=== PATIENT | male | born 2000 | race Caucasian/White ===

== ENCOUNTER 2023-03-05 19:39 | Inpatient (IN) ==
[2023-03-05] MEDS ORDERED: SODIUM CHLORIDE 0.9% IV STA (19:55)
[2023-03-05] MEDS ORDERED: PHENOBARBITAL SODIUM IV STA (19:55)
[2023-03-05] MEDS ORDERED: SODIUM CHLORIDE 0.9% 1000ML 1,000 ML IV ONE ×2 (19:55→21:18)
[2023-03-05 20:21] LABS: Albumin Globulin Ratio 1.5 (0.9-2); Albumin Level 4.5 gm/dl (3.4-5.0); BUN Creatinine Ratio 15.1 (10-20); Bilirubin,Total 0.2 mg/dl (0.2-1.0); Calcium 9.2 mg/dl (8.6-10.3); Creatinine Clr Calc Pharmacy 141.5 ml/min; Est GFR (African American) 141.7 ml/min; Est GFR (Non-African American) 122.2 ml/min; Potassium 3.7 mmol/L (3.5-5.1); Total Protein 7.5 gm/dl (6.0-8.3)
[2023-03-05 20:24] LABS: Basophils # (auto) 0.11 K/uL (0-0.2); Basophils % (auto) 1.4 %; Eosinophils # (auto) 0.66 K/uL (0-0.50); Eosinophils % (auto) 8.1 %; Hematocrit (blood only) 43.1 % (42.0-52.0); Hemoglobin 14.9 g/dl (14.0-18.0); Immature Granulocytes # (auto) 0.02 K/uL (0.01-0.20); Immature Granulocytes % (auto) 0.2 %; Lymphocytes # (auto) 2.33 K/uL (1.2-3.4); Lymphocytes % (auto) 28.8 %; Mean Corpuscular Hemoglobin 28.2 pg (25.0-34.0); Mean Corpuscular Hgb Conc 34.6 g/dL (32.0-36.0); Mean Corpuscular Volume 81.6 fL (80.0-100.0); Mean Platelet Volume 10.1 fL (9.4-12.4); Monocytes # (auto) 0.45 K/uL (0.11-0.59); Monocytes % (auto) 5.6 %; Neutrophils # (auto) 4.53 K/uL (1.40-6.50); Neutrophils % (auto) 55.9 %; Platelet Count 257 K/uL (130-400); RDW Coefficient of Variation 13.9 % (11.5-14.5); Red Blood Count 5.28 M/uL (4.70-6.10)
--- NOTE | 2023-03-05 20:25 | Emergency Department Note ---
Impression & Plan Post-ictal state, Seizure ED Provider Note CHIEF COMPLAINT: Seizure HISTORY OF PRESENT ILLNESS: This 22-year-old male patient with past medical history of seizure disorder presents to the emergency department after a seizure today. Patient's brother is at the bedside and states that they were at work tonight when the patient began to seize. A another coworker was able to break his fall, they do not believe he was injured. Patient did have some alcohol yesterday he believes but had previously been told he could not drink to excess. Patient's brother states he was previously noncompliant with his medicines but he believes he has been taking them lately. He is followed by neurology but states they are "looking for a new doctor." He is unsure of the doctor's name and location. Per EMS the patient had a seizure in route. He was given 2 mg of IV Ativan and 4 mg of IV Versed by medical command. REVIEW OF SYSTEMS: A review of systems was performed with positives and pertinent negatives listed in the history of present illness. 10 systems were reviewed and are otherwise negative. ALLERGIES: see below MEDICATIONS: see below PMH: see below SOCIAL HISTORY: see below DDx: Epilepsy, CSF infection, hypoglycemia, electrolyte abnormalities, cardiac arrhythmia, intracerebral event, trauma, toxicologic, as well as other pathologies. PHYSICAL EXAM: Vital signs reviewed. General: Generally well-appearing 22-year-old male, somnolent and appears to be sleeping. HEENT: No scleral icterus, PERRLA, neck supple. Atraumatic. Cardiovascular: Regular rate and rhythm, no extra sounds. Pulmonary: Clear to auscultation bilaterally, normal work of breathing. Abdomen: Soft, nontender, nondistended, positive bowel sounds. Musculoskeletal: Atraumatic, no peripheral edema. Neurologic: Patient appears to be postictal, sleeping Skin: Warm, dry, no rash EMERGENCY DEPARTMENT COURSE/MDM: This patient was evaluated and appeared to be in no distress. The patient was quite sedate/postictal. No further seizure activity was witnessed in the emergency department. The patient was loaded with IV Keppra 2 g and IV phenobarbital 1 g. Patient did receive 1 L of normal saline solution by EMS and a second for some mild hypotension. This is likely a combination of all the sedating medications and his seizure. Patient remained fairly sedate but arousable to painful stimuli. In review of the patient's external medical records, he has had several head CTs at our facility. His brother witnessed the events tonight and denied any trauma. I do not feel that further imaging is warranted at this time. The case was discussed with Dr. Barros of the hospitalist service who will evaluate the patient for admission and further management. MONITORING: An order for cardiac monitoring was placed and the patient is noted to be in a normal sinus rhythm at 93 beats per minute. DISPOSITION: Admit Past Med/Surg History Medical History No pertinent family history Seizure Surgical History No pertinent past surgical history Social History Smoking Status: Never smoker Preferred Language: Icelandic Feels Safe at Home: Yes Allergies Allergies Allergy/AdvReac Type Severity Reaction Status Date / Time No Known Allergies Allergy Unverified 07/04/21 20:12 Home Meds Home Medications Medication Instructions Recorded Confirmed phenobarbital 100 mg tablet 200 mg PO BID 07/04/21 02/07/23 Results & Data (ED) Vital Signs Vital Signs - 24 hr 03/05/23 19:45 03/05/23 19:43 03/05/23 21:08 Temperature 36.5 C Temperature Source Axillary Pulse Rate 93 H 51 L Pulse Rate from SpO2 Sensor Respiratory Rate 23 16 Blood Pressure 117/61 85/64 L Blood Pressure Mean 79 Pulse Oximetry 93 93 Oxygen Delivery Method Room Air Nasal Cannula Oxygen Flow Rate 0 Sepsis Recent Fever Within 48 Hours No Sepsis New/Unexplained Change in Mental Status No Sepsis Action Taken by Nursing No Action Required Oxygen Flow Rate - Titration 2 Pulse Oximetry Post Tiitration 99 03/05/23 19:43 03/05/23 21:06 03/05/23 21:23 Temperature Temperature Source Pulse Rate 82 51 L 53 L Pulse Rate from SpO2 Sensor 51 L 53 L Respiratory Rate 13 16 Blood Pressure 85/54 L 100/50 L Blood Pressure Mean 64 66 Pulse Oximetry 99 99 Oxygen Delivery Method Oxygen Flow Rate Sepsis Recent Fever Within 48 Hours Sepsis New/Unexplained Change in Mental Status Sepsis Action Taken by Nursing Oxygen Flow Rate - Titration Pulse Oximetry Post Tiitration 03/05/23 22:17 Temperature Temperature Source Pulse Rate 54 L Pulse Rate from SpO2 Sensor 52 L Respiratory Rate 14 Blood Pressure 97/51 L Blood Pressure Mean 66 Pulse Oximetry 100 Oxygen Delivery Method Oxygen Flow Rate Sepsis Recent Fever Within 48 Hours Sepsis New/Unexplained Change in Mental Status Sepsis Action Taken by Nursing Oxygen Flow Rate - Titration Pulse Oximetry Post Tiitration Home Medications Current Medication List: was personally reviewed by me Laboratory Data Attestation: I reviewed the patient's lab results. 03/05/23 19:45 03/05/23 19:45 Lab Results 03/05/23 03/05/23 03/05/23 Range/Units 19:45 19:45 19:45 WBC 8.10 (4.8-10.8) K/ul RBC 5.28 (4.70-6.10) M/uL Hgb 14.9 (14.0-18.0) g/dl Hct 43.1 (42.0-52.0) % MCV 81.6 (80.0-100.0) fL MCH 28.2 (25.0-34.0) pg MCHC 34.6 (32.0-36.0) g/dL RDW Std Deviation 41.0 (36.4-46.3) fL RDW Coeff of Bishnu 13.9 (11.5-14.5) % Plt Count 257 (130-400) K/uL MPV 10.1 (9.4-12.4) fL Immature Gran % (Auto) 0.2 % Neut % (Auto) 55.9 % Lymph % (Auto) 28.8 % [place] % (Auto) 5.6 % Eos % (Auto) 8.1 % Baso % (Auto) 1.4 % Neut # (Auto) 4.53 (1.40-6.50) K/uL Lymph # (Auto) 2.33 (1.2-3.4) K/uL [place] # (Auto) 0.45 (0.11-0.59) K/uL Eos # (Auto) 0.66 H (0-0.50) K/uL Baso # (Auto) 0.11 (0-0.2) K/uL Immature Gran # (Auto) 0.02 (0.01-0.20) K/uL Sodium 136 (136-145) mmol/L Potassium 3.7 (3.5-5.1) mmol/L Chloride 103 (98-107) mmol/L Carbon Dioxide 20 L (21-32) mmol/L Anion Gap 13 H (3-11) BUN 13 (6-23) mg/dl Creatinine 0.86 (0.6-1.4) mg/dl Est Cr Clr Drug Dosing 141.5 ml/min Est GFR ( Amer) 141.7 ml/min Est GFR (Non-Af Amer) 122.2 ml/min BUN/Creatinine Ratio 15.1 (10-20) Glucose 92 (70-99(Fasting)) mg/dl Calcium 9.2 (8.6-10.3) mg/dl Total Bilirubin 0.2 (0.2-1.0) mg/dl AST 23 (13-39) U/L ALT 22 (7-52) U/L Alkaline Phosphatase 76 (34-104) U/L Total Protein 7.5 (6.0-8.3) gm/dl Albumin 4.5 (3.4-5.0) gm/dl Globulin 3.0 (2.5-4.0) gm/dl Albumin/Globulin Ratio 1.5 (0.9-2) Phenobarbital 24.3 (10-40) mcg/ml Administered Medications Discontinued Medications Sodium Chloride (Nss 1000ml) 1,000 mls @ 999 mls/hr IV .Q1H1M ONE Stop: 03/05/23 20:55 Last Infusion: 03/05/23 21:03 Dose: 0 mls/hr Documented By: Admin: 03/05/23 20:00 Dose: 999 mls/hr Documented By: BRANDAN Levetiracetam 2,000 mg/ Sodium (Chloride) 270 mls @ 999 mls/hr IV NOW STA Stop: 03/05/23 20:11 Last Infusion: 03/05/23 21:03 Dose: 0 mls/hr Documented By: Admin: 03/05/23 20:48 Dose: 999 mls/hr Documented By: BRANDAN Phenobarbital Sodium 1,000 mg/ (Sodium Chloride) 57.6923 mls @ 203.62 mls/hr IV NOW STA Stop: 03/05/23 19:56 Last Infusion: 03/05/23 21:23 Dose: 0 mls/hr Documented By: Admin: 03/05/23 21:08 Dose: 203.6 mls/hr Documented By: BRANDAN Sodium Chloride (Nss 1000ml) 1,000 mls @ 999 mls/hr IV .Q1H1M ONE Stop: 03/05/23 22:18 Last Infusion: 03/05/23 22:18 Dose: 0 mls/hr Documented By: Admin: 03/05/23 21:23 Dose: 999 mls/hr Documented By: BRANDAN Discharge Plan Visit Data Chief Complaint: Seizure Stated Complaint: SEIZURE ED Provider: Melody Parham Discharge Problem: Post-ictal state, Seizure Patient Disposition: Admitted As Inpatient Discharge Instructions Interventions: ED Discharge Assessment Last Done: 03/06/23 00:19
--- NOTE | 2023-03-05 23:06 | History & Physical Report ---
Date of Service March 05, 2023 Assessment & Plan (1) Post-ictal state: (2) Seizure: Plan Seizure disorder/postictal state with 2 seizures prior to hospital arrival- The patient will be admitted to telemetry for serial cardiac enzymes, serial EKG's, cardiac rhythm monitoring NPO Phenobarbital level 24.3 Usual dosing of medications is Keppra 1000 mg p.o. twice daily and phenobarbital 200 mg p.o. twice daily. I personally looked at his pill bottles. Patient did not receive this evening's dose orally. He did receive from the ED Keppra 2000 mg IV and phenobarbital 1000 mg IV. He did receive Versed 4 mg IV in route from EMS Patient's heart rate is in the upper 40s, respirations are in the upper single digits Blood pressure and oxygenation are good We will tentatively place him on IV one-to-one conversion of Keppra and phenobarbital for the morning, but will be held if patient has excess sedation this evening. NSS + KCl 20 mill equivalents changed from 80-150 mils per hour Order MRI brain seizure protocol without contrast Order EEG Consult neurology History of Present Illness Chief Complaint: The patient was brought to the emergency department by EMS, after having a seizure in the outpatient setting, and per his brother who is the primary historian, had a seizure in route in the ambulance as well. Primary Care Provider: NO PCP The patient is a 22-year-old male with a past medical history including seizure disorder, who presents to the emergency department after having had 2 seizures prior to hospital arrival. He had been given Versed 4 mg IV by EMS in route, and received from the ED Keppra 2000 mg IV and phenobarbital 1000 mg IV. His brother reports that the patient had had seizures as a child, and then had s eizures again for the first time several months ago when he was restarted on medications at that time. His brother reports that he drinks alcohol about every 3 days on average, does not drink to excess, and reportedly had alcohol drink yesterday. The patient himself his rousable to sternal rub, but otherwise is sedated and unresponsive. Allergies Allergy/AdvReac Type Severity Reaction Status Date / Time No Known Allergies Allergy Unverified 07/04/21 20:12 Home Medications Medication Instructions Recorded Confirmed Type phenobarbital 100 mg tablet 200 mg PO BID 07/04/21 02/07/23 History Past Med/Surg History Medical History No pertinent family history Seizure Surgical History No pertinent past surgical history Social History Smoking Status: Never smoker Preferred Language: Sami Feels Safe at Home: Yes Review of Systems Review of Systems: The patient is unable to contribute to HPI or review of systems, as noted above, and his brother who is in the room, serves as primary source of information. The patient had been in his usual state of health until earlier in the day today, while having had a seizure at work. 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 He has not had any sick exposures or recent travels. He does not have any tobacco use or IV drug use. As noted, his alcohol use is approximately every 3 days, not to excess, and last intake was sometime yesterday. Physical Exam Physical Exam: The patient is sedated, postictal, well developed and well nourished, normocephalic and atraumatic, lying in bed and in no acute distress. HEENT--PERRL, EOMI, mucous membranes and oropharynx dry. Neck--supple. No JVD. No bruits. Thyroid normal, trachea midline, no adenopathy. Heart--normal S1 and S2. No murmurs, rubs or gallops. Lungs--clear bilaterally, no respiratory distress, no accessory muscle use. Abdomen--normal bowel sounds and soft. Nontender. Nondistended, no hernias or masses, no organomegaly. Extremities--no cyanosis or clubbing. No edema. There are good distal pulses b/l. Dermatologic--normal skin turgor, normal color, no abnormal lymph nodes, no rash. Neurologic--limited exam due to sedation Rheumatologic--limited exam due to sedation Psychiatric--unresponsive due to sedation, does wake up to sternal rub Results & Data Results & Data Vital Signs (Past 12 Hours) Vital Signs Temp Pulse Resp BP Pulse Ox O2 Del Method O2 Flow Rate 03/05/23 22:17 54 L 14 97/51 L 100 03/05/23 21:23 53 L 16 100/50 L 99 03/05/23 21:06 51 L 13 85/54 L 99 03/05/23 19:43 82 03/05/23 21:08 51 L 16 85/64 L 03/05/23 19:43 93 Nasal Cannula 0 03/05/23 19:45 36.5 C 93 H 23 117/61 93 Room Air Laboratory Results Laboratory Results WBC 8.10 K/ul (4.8-10.8) 03/05/23 19:45 RBC 5.28 M/uL (4.70-6.10) 03/05/23 19:45 Hgb 14.9 g/dl (14.0-18.0) 03/05/23 19:45 POC Hgb 15.0 g/dl (14.0-18.0) 03/06/23 00:58 Hct 43.1 % (42.0-52.0) 03/05/23 19:45 POC Hct 44 % (42-52) 03/06/23 00:58 MCV 81.6 fL (80.0-100.0) 03/05/23 19:45 MCH 28.2 pg (25.0-34.0) 03/05/23 19:45 MCHC 34.6 g/dL (32.0-36.0) 03/05/23 19:45 RDW Std Deviation 41.0 fL (36.4-46.3) 03/05/23 19:45 RDW Coeff of Bishnu 13.9 % (11.5-14.5) 03/05/23 19:45 Plt Count 257 K/uL (130-400) 03/05/23 19:45 MPV 10.1 fL (9.4-12.4) 03/05/23 19:45 Immature Gran % (Auto) 0.2 % 03/05/23 19:45 Neut % (Auto) 55.9 % 03/05/23 19:45 Lymph % (Auto) 28.8 % 03/05/23 19:45 [place] % (Auto) 5.6 % 03/05/23 19:45 Eos % (Auto) 8.1 % 03/05/23 19:45 Baso % (Auto) 1.4 % 03/05/23 19:45 Neut # (Auto) 4.53 K/uL (1.40-6.50) 03/05/23 19:45 Lymph # (Auto) 2.33 K/uL (1.2-3.4) 03/05/23 19:45 [place] # (Auto) 0.45 K/uL (0.11-0.59) 03/05/23 19:45 Eos # (Auto) 0.66 K/uL (0-0.50) H 03/05/23 19:45 Baso # (Auto) 0.11 K/uL (0-0.2) 03/05/23 19:45 Immature Gran # (Auto) 0.02 K/uL (0.01-0.20) 03/05/23 19:45 Sample Site L Radial 03/06/23 00:58 POC pH 7.34 (7.35-7.45) L 03/06/23 00:58 POC pCO2 44 mmHg (35-46) 03/06/23 00:58 POC pO2 85 mmHg (80-95) 03/06/23 00:58 POC HCO3 23 joy/L (19-24) 03/06/23 00:58 POC Total CO2 25 mmol/L (24-31) 03/06/23 00:58 POC Base Excess -2.0 joy/L (-9-1.8) 03/06/23 00:58 ABG pH (Temp Correct) 7.344 (7.35-7.45) L 03/06/23 00:58 ABG pCO2 (Temp Corrct 43 mmHg (35-46) 03/06/23 00:58 POC ABG pO2 at Pt Temp 82 03/06/23 00:58 POC ABG O2 Sat 96.0 % (90-95) H 03/06/23 00:58 Keith Test NA 03/06/23 00:58 O2 Delivery Device Cannula 03/06/23 00:58 POC Sodium 140 mmol/L (135-144) 03/06/23 00:58 Sodium 136 mmol/L (136-145) 03/05/23 19:45 POC Potassium 3.8 mmol/L (3.3-5.0) 03/06/23 00:58 Potassium 3.7 mmol/L (3.5-5.1) 03/05/23 19:45 Chloride 103 mmol/L (98-107) 03/05/23 19:45 Carbon Dioxide 20 mmol/L (21-32) L 03/05/23 19:45 Anion Gap 13 (3-11) H 03/05/23 19:45 BUN 13 mg/dl (6-23) 03/05/23 19:45 Creatinine 0.86 mg/dl (0.6-1.4) 03/05/23 19:45 Est Cr Clr Drug Dosing 141.5 ml/min 03/05/23 19:45 Est GFR ( Amer) 141.7 ml/min 03/05/23 19:45 Est GFR (Non-Af Amer) 122.2 ml/min 03/05/23 19:45 BUN/Creatinine Ratio 15.1 (10-20) 03/05/23 19:45 Glucose 92 mg/dl (70-99(Fasting)) 03/05/23 19:45 POC Glucose 78 mg/dl (70-99) 03/06/23 00:45 Calcium 9.2 mg/dl (8.6-10.3) 03/05/23 19:45 Phosphorus 3.6 mg/dl (2.5-4.9) 03/05/23 19:45 Total Bilirubin 0.2 mg/dl (0.2-1.0) 03/05/23 19:45 AST 23 U/L (13-39) 03/05/23 19:45 ALT 22 U/L (7-52) 03/05/23 19:45 Alkaline Phosphatase 76 U/L (34-104) 03/05/23 19:45 Total Protein 7.5 gm/dl (6.0-8.3) 03/05/23 19:45 Albumin 4.5 gm/dl (3.4-5.0) 03/05/23 19:45 Globulin 3.0 gm/dl (2.5-4.0) 03/05/23 19:45 Albumin/Globulin Ratio 1.5 (0.9-2) 03/05/23 19:45 Phenobarbital 24.3 mcg/ml (10-40) 03/05/23 19:45 SARS-CoV-2, RNA, NAAT NEGATIVE (NEGATIVE) 03/05/23 23:35 Code Status & VTE Plan Code Status Full code VTE Prophylaxis Plan VTE Prophylaxis will be ordered: Yes PG Care Time/CCT Total # of Minutes Spent Total Time Spent with Patient: Total time spent is greater than 50% in coordination of care (as documented) at patient's floor/unit and/or counseling patient: Coding Level of Care Code 78915 INT INP/OBS CARE 3/75MIN Diagnoses Post-ictal state R56.9 Seizure R56.9
[2023-03-06] MEDS ORDERED: ONDANSETRON INJ 2 MG/ML 2 ML VIAL IV PRN (00:48)
[2023-03-06] MEDS: NSS + 20MEQ KCL 20 MEQ/1,000 ML BAG IV SCH ×4 (01:07→23:33)
[2023-03-06 01:12] LABS: iSTAT Art Bld Gas pCO2 Correct 43 mmHg (35-46); iSTAT Art Bld Gas pH Corrected 7.344 (7.35-7.45); iSTAT Arterial Blood Gas HCO3 23 meg/L (19-24); iSTAT Arterial Blood Gas pCO2 44 mmHg (35-46); iSTAT Arterial Blood Gas pH 7.34 (7.35-7.45); iSTAT Arterial Blood Gas pO2 85 mmHg (80-95); iSTAT Arterial Blood Gas pO2 C 82; iSTAT Carbon Dioxide 25 mmol/L (24-31); iSTAT Hematocrit 44 % (42-52); iSTAT Potassium 3.8 mmol/L (3.3-5.0); iSTAT Site L Radial; iSTAT Sodium 140 mmol/L (135-144)
[2023-03-06 01:17] LABS: Phosphorus 3.6 mg/dl (2.5-4.9)
--- NOTE | 2023-03-06 04:43 | CT Scan Report ---
Exam(s): CT HEAD Without Contrast EXAM: CT Head Without Intravenous Contrast CLINICAL HISTORY: seizure, altered mentation. TECHNIQUE: Axial computed tomography images of the head/brain without intravenous contrast. CTDI is 37.69 mGy and DLP is 624.41 mGy-cm. Automated exposure control was utilized for the study. A dose lowering technique was utilized adhering to the principles of ALARA. COMPARISON: 02/07/2023 FINDINGS: Brain: Unremarkable. No hemorrhage. No significant white matter disease. No edema. Ventricles: Unremarkable. No ventriculomegaly. Bones/joints: Unremarkable. No acute fracture. Soft tissues: Unremarkable. Sinuses: Unremarkable as visualized. No acute sinusitis. Mastoid air cells: Unremarkable as visualized. No mastoid effusion. IMPRESSION: No acute intracranial process or significant alteration from the previous examination. Electronically signed by: Cj Cota MD 03/06/23 04:42 AM
[2023-03-06 06:19] LABS: Basophils % (auto) 1.1 %; Eosinophils # (auto) 0.72 K/uL (0-0.50); Eosinophils % (auto) 8.3 %; Hematocrit (blood only) 42.5 % (42.0-52.0); Hemoglobin 14.5 g/dl (14.0-18.0); Immature Granulocytes # (auto) 0.03 K/uL (0.01-0.20); Immature Granulocytes % (auto) 0.3 %; Mean Corpuscular Hgb Conc 34.1 g/dL (32.0-36.0); Mean Corpuscular Volume 82.2 fL (80.0-100.0); Mean Platelet Volume 10.1 fL (9.4-12.4); Monocytes # (auto) 0.66 K/uL (0.11-0.59); Monocytes % (auto) 7.6 %; Neutrophils # (auto) 5.19 K/uL (1.40-6.50); Neutrophils % (auto) 59.7 %; Platelet Count 221 K/uL (130-400); RDW Coefficient of Variation 14.4 % (11.5-14.5); RDW Standard Deviation 43.4 fL (36.4-46.3); Red Blood Count 5.17 M/uL (4.70-6.10)
[2023-03-06 06:29] LABS: Alanine Aminotransferase 18 U/L (7-52); Albumin Globulin Ratio 1.3 (0.9-2); Albumin Level 3.6 gm/dl (3.4-5.0); Alkaline Phosphatase 62 U/L (34-104); Anion Gap 4 (3-11); Aspartate Aminotransferase 17 U/L (13-39); BUN Creatinine Ratio 13.4 (10-20); Bilirubin,Total 0.4 mg/dl (0.2-1.0); Blood Urea Nitrogen 9 mg/dl (6-23); Calcium 8.2 mg/dl (8.6-10.3); Carbon Dioxide 24 mmol/L (21-32); Chloride 110 mmol/L (98-107); Est GFR (African American) > 150.0 ml/min; Est GFR (Non-African American) 135.4 ml/min; Globulin 2.8 gm/dl (2.5-4.0); Glucose 91 mg/dl (70-99(Fasting)); Magnesium 1.9 mg/dl (1.7-2.4); Sodium 138 mmol/L (136-145); Total Protein 6.4 gm/dl (6.0-8.3)
[2023-03-06 06:42] LABS: Amphetamines+Metham, Urine Neg (Neg); Barbiturates, Urine Pos (Neg); Benzodiazepine, Urine Pos (Neg); Cocaine, Urine Neg (Neg); MDMA (Ecstacy), Urine Neg (Neg); Methadone, Urine Neg (Neg); Opiate, Urine Neg (Neg); Phencyclidine, Urine Neg (Neg)
--- NOTE | 2023-03-06 08:01 | Hospitalist Progress Note ---
Date of Service March 06, 2023 Assessment & Plan (1) Post-ictal state: (2) Seizure: Plan Sachin White is a 22 year-old male who presented to the ED after experiencing a seizure at work. He has a past medical history of seizure disorder, diagnosed at age 17. Seizure disorder/Postictal State -Two seizures prior to hospital arrival, received Ativan/Versed in ambulance and Keppra/Phenobarbital in the ED. -Phenobarbital level 24.3 -Current dosing of medications is Keppra 1000 mg p.o. twice daily and phenobarbital 200 mg p.o. twice daily -Per PDMP review, phenobarbital was most recently filled in 07/2022 (90 day supply) -NPO currently, can restart diet/PO meds if patient is appropriate -Neurology consulted, appreciate recommendations -Continue current dosage of phenobarbital/Keppra, consider tapering off phenobarbital in the future -Advise restriction of alcohol and strict adherence to medications -Follow up with outpatient neurology in 2-3 weeks Studies: * CT head: no acute abnormalities * MR Brain: no acute abnormalities * EEG: left frontal sharp and slow-wave focus, no evidence of ongoing seizure activity Hypotension, Bradycardia -Patient in postictal state -BP has been soft at 90s-100s/50s and HR mid 40s-50s -Patient on NSS maintenance fluids and ordered NSS bolus today -Ordered Lyme studies- negative -Ordered echocardiogram, to be completed Barriers to Care -Patient states he does not have insurance and currently does not have a primary care doctor -Will reach out to Nurse Navigator to help determine other needs/factors that may negatively impact his ability to access care Admission and Anticipated Discharge Date Admission Date: March 05, 2023 Supervising Physician Co-Signing Physician Notes Resident Physician Supervision Note: I independently interviewed and examined the patient and verified the chand history and physical, reviewed labs and image studies and agree with resident findings and care plan. Subjective Patient seen and examined at bedside. This morning he remained somnolent but arousable. He opened his eyes and moved around in response to stimuli. Per nursing report, there was some left eye deviation overnight but none seen on evaluation. Later in the day his brother- Srikanth- was at bedside and provided additional background and translated for Sachin. He states that they are from [facility] and Sachin was diagnosed with seizures there at age 17. He has not seen a neurologist since moving to the and has had his medication prescribed by a family doctor (although has not been seen there in about a year). His brother states that the doctor used to be in [place] but he has since moved out of the area and has not found a new local doctor. He also states that Sachin "doesn't like" being on his medications but he believes he has been taking them as prescribed. Review of Systems Review of Systems: As per above Physical Exam Constitutional: well developed, well nourished and + lethargic; no acute distress Eyes: + anicteric sclerae and reactive pupils ENMT: External ears and nose normal. Moist mucous membranes. Respiratory: No increased work of breathing or respiratory distress. Anterior lung howard clear to auscultation. Cardiovascular: Rate/Rhythm: regular rate and regular rhythm Heart Sounds: no murmur Gastrointestinal (Abdomen): Abdomen soft, nontender. No masses palpated. Skin: no rashes, warm and dry Neurologic: CN's II-XI intact bilaterally and moves all extremities; no focal motor deficits Cranial Nerves: EOM intact bilaterally, normal facial strength, tongue midline and able to elevate shoulders bilaterally Psychiatric: Motor Behavior: no abnormal motor movements Results & Data Results & Data Vital Signs (Past 12 Hours) Vital Signs Temp Pulse Pulse Resp BP BP BP 03/06/23 07:55 44 L 03/06/23 07:41 36.4 C L 64 19 108/63 03/06/23 07:17 03/06/23 00:39 70 03/06/23 01:00 03/06/23 02:57 36.5 C 54 L 13 106/70 03/06/23 02:45 92/62 L 03/06/23 02:45 59 L 9 L 03/06/23 02:32 106/70 03/06/23 02:32 55 L 13 03/06/23 02:30 55 L 14 03/06/23 02:00 55 L 13 03/06/23 01:30 56 L 14 03/06/23 01:00 49 L 11 L 03/06/23 00:40 49 L 03/06/23 00:48 03/06/23 00:45 36.5 C 45 L 8 L 110/65 06/26/23 00:50 45 L 9 L 03/05/23 23:55 51 L 18 92/53 L 03/05/23 22:17 54 L 14 97/51 L 03/05/23 21:23 53 L 16 100/50 L 03/05/23 21:06 51 L 13 85/54 L 03/05/23 21:08 51 L 16 85/64 L Pulse Ox O2 Del Method O2 Del Method O2 Flow Rate 03/06/23 07:55 03/06/23 07:41 99 Room Air 03/06/23 07:17 Room Air 03/06/23 00:39 03/06/23 01:00 Room Air 03/06/23 02:57 96 Room Air 03/06/23 02:45 03/06/23 02:45 96 03/06/23 02:32 03/06/23 02:32 96 03/06/23 02:30 96 03/06/23 02:00 94 03/06/23 01:30 94 03/06/23 01:00 100 03/06/23 00:40 98 03/06/23 00:48 Room Air 03/06/23 00:45 97 Room Air 03/06/23 00:50 98 Room Air 03/05/23 23:55 99 Nasal Cannula 2 03/05/23 22:17 100 03/05/23 21:23 99 03/05/23 21:06 99 03/05/23 21:08 Diagnostic Findings Brain MRI 03/06/23 01:20 MR brain seizure wo con CLINICAL HISTORY: increased seizure activity TECHNIQUE: Multiplanar and multisequence MR images of the brain were obtained prior to and following administration of gadolinium contrast. Comparison: None available at the time of this dictation. FINDINGS: Exam is mildly limited by patient motion. No abnormal restricted diffusion is identified. The white matter is unremarkable. The ventricular system is normal in appearance.No mass or abnormal enhancement is seen. There is no mass effect or midline shift. There is no evidence of acute intraparenchymal hemorrhage. No extra axial fluid collections are seen. The corpus callosum, pituitary gland, and cerebellar tonsils appear grossly unremarkable. High-resolution images of the temporal lobes do not demonstrate any signal abnormality. Flow voids of the major intracranial arterial vessels are identified. The imaged portions of the paranasal sinuses, mastoid air cells, and orbits are unremarkable. IMPRESSION: No acute abnormality. In particular, no edema in the temporal lobes bilaterally in this postictal patient. ACT 112: Negative or not required by law. Electronically signed by: Darvin Oakley M.D. 03/06/2023 10:[address] 03/06/23 03:09 Exam(s): CT HEAD Without Contrast EXAM: CT Head Without Intravenous Contrast CLINICAL HISTORY: seizure, altered mentation. TECHNIQUE: Axial computed tomography images of the head/brain without intravenous contrast. CTDI is 37.69 mGy and DLP is 624.41 mGy-cm. Automated exposure control was utilized for the study. A dose lowering technique was utilized adhering to the principles of ALARA. COMPARISON: 02/07/2023 FINDINGS: Brain: Unremarkable. No hemorrhage. No significant white matter disease. No edema. Ventricles: Unremarkable. No ventriculomegaly. Bones/joints: Unremarkable. No acute fracture. Soft tissues: Unremarkable. Sinuses: Unremarkable as visualized. No acute sinusitis. Mastoid air cells: Unremarkable as visualized. No mastoid effusion. IMPRESSION: No acute intracranial process or significant alteration from the previous examination. Electronically signed by: Cj Cota MD 03/06/23 04:42 AM Chest X-Ray 03/06/23 08:24 XR chest 1V portable CLINICAL HISTORY: screening for implantables prior to MRI COMPARISON STUDY: Chest radiograph May 24, 2022. FINDINGS: Lung volumes are normal. Lungs are clear. There is no pneumothorax or pleural effusion. Mild enlargement of the cardiac silhouette is again noted. Mediastinal contours are normal. There is no evidence for pulmonary edema. No unexpected radiopaque foreign bodies. IMPRESSION: No contraindication to MRI within the chest. ACT 112: Negative or not required by law. Electronically signed by: Modesto Rich M.D. 03/06/2023 9:46 AM KUB X-Ray 03/06/23 08:24 KUB CLINICAL HISTORY: screening for implantables prior to MRI COMPARISON STUDY: None. FINDINGS: The bowel gas pattern is normal. No unexpected radiopaque foreign bodies are identified. Amount of stool is within normal limits. IMPRESSION: No contraindication to MRI within the abdomen or pelvis. ACT 112: Negative or not required by law. Electronically signed by: Modesto Rich M.D. 03/06/2023 9:47 AM Orbit X-Ray 03/06/23 08:24 ORBIT RADIOGRAPHS 3 VIEWS HISTORY: pre-MRI screening. COMPARISON: Head CT March 06, 2023 at 3:23 AM. FINDINGS: There are no radiopaque foreign bodies identified within the orbits. IMPRESSION: No radiopaque foreign bodies identified within the orbits. ACT 112: Negative or not required by law. Electronically signed by: Modesto Rich M.D. 03/06/2023 9:51 AM Resident Activity Tracking Resident Involvement: Resident Care Provided Care Provided: Adult Hospital Medicine
[2023-03-06] MEDS: levETIRAcetam 1,000 MG in 0.9 % SODIUM CHLORIDE 100 ML IV SCH ×2 (08:27→20:28)
[2023-03-06] MEDS ORDERED: PHENobarbital sodium 130 MG/ML VIAL IV SCH (09:00)
[2023-03-06] MEDS: PHENOBARBITAL SODIUM IV SCH ×2 (09:13→20:28)
--- NOTE | 2023-03-06 09:47 | XRay Report ---
XR chest 1V portable CLINICAL HISTORY: screening for implantables prior to MRI COMPARISON STUDY: Chest radiograph May 24, 2022. FINDINGS: Lung volumes are normal. Lungs are clear. There is no pneumothorax or pleural effusion. Mil d enlargement of the cardiac silhouette is again noted. Mediastinal contours are normal. There is no evidence for pulmonary edema. No unexpected radiopaque foreign bodies. IMPRESSION: No contraindication to MRI within the chest. ACT 112: Negative or not required by law. Electronically signed by: Modesto Rich M.D. 03/06/2023 9:46 AM
--- NOTE | 2023-03-06 09:48 | XRay Report ---
KUB CLINICAL HISTORY: screening for implantables prior to MRI COMPARISON STUDY: None. FINDINGS: The bowel gas pattern is normal. No unexpected radiopaque foreign bodies are identified. Am ount of stool is within normal limits. IMPRESSION: No contraindication to MRI within the abdomen or pelvis. ACT 112: Negative or not required by law. Electronically signed by: Modesto Rich M.D. 03/06/2023 9:47 AM
--- NOTE | 2023-03-06 09:53 | XRay Report ---
ORBIT RADIOGRAPHS 3 VIEWS HISTORY: pre-MRI screening. COMPARISON: Head CT March 06, 2023 at 3:23 AM. FINDINGS: There are no radiopaque foreign bodies identified within the orbits. IMPRESSION: No radiopaque foreign bodies identified within the orbits. ACT 112: Negative or not required by law. Electronically signed by: Modesto Rich M.D. 03/06/2023 9:51 AM
[2023-03-06] MEDS ORDERED: SODIUM CHLORIDE 0.9% 1000ML 500 ML IV ONE (10:36)
--- NOTE | 2023-03-06 10:43 | Magnetic Resonance Report ---
MR brain seizure wo con CLINICAL HISTORY: increased seizure activity TECHNIQUE: Multiplanar and multisequence MR images of the brain were obtained prior to and following administration of gadolinium contrast. Comparison: None available at the time of this dictation. FINDINGS: Exam is mildly limited by patient motion. No abnormal restricted diffusion is identified. The white m atter is unremarkable. The ventricular system is normal in appearance.No mass or abnormal enhancement is seen. There is no mass effect or midline shift. There is no evidence of acute intraparenchymal he morrhage. No extra axial fluid collections are seen. The corpus callosum, pituitary gland, and cerebe llar tonsils appear grossly unremarkable. High-resolution images of the temporal lobes do not demonst rate any signal abnormality. Flow voids of the major intracranial arterial vessels are identified. The imaged portions of the para nasal sinuses, mastoid air cells, and orbits are unremarkable. IMPRESSION: No acute abnormality. In particular, no edema in the temporal lobes bilaterally in this postictal pat ient. ACT 112: Negative or not required by law. Electronically signed by: Darvin Oakley M.D. 03/06/2023 10:41 AM
[2023-03-06] MEDS ORDERED: SODIUM CHLORIDE 0.9% 1000ML 1,000 ML IV SCH (10:45)
[2023-03-06 11:28] LABS: Lyme Ab IgG w/WB Rflx Negative (Negative); Lyme Ab IgM w/WB Rflx Negative (Negative)
--- NOTE | 2023-03-06 12:06 | Electroencephalogram ---
EEG Procedure Note Date of Service March 06, 2023 Start / End Times Start Time: 6:22 AM End Time: 6:[address] Barros History Seizure disorder Home Medication List Medication Instructions Recorded Confirmed Type phenobarbital 100 mg tablet 200 mg PO BID 07/04/21 02/07/23 History Inpatient Medication List Potassium Chloride/Sodium Chloride (Normal Saline W/20 Meq Kcl) 20 meq in 1,000 mls @ 150 mls/hr IV .Q6H40M [facility] Stop: 04/05/23 00:47 Last Admin: 03/06/23 08:27 Dose: 150 mls/hr Documented By: Infusion: 03/06/23 08:27 Dose: 150 mls/hr Documented By: Infusion: 03/06/23 08:01 Dose: 150 mls/hr Documented By: Admin: 03/06/23 01:07 Dose: 80 mls/hr Documented By: NIKITA Levetiracetam 1,000 mg/ Sodium (Chloride) 110 mls @ 440 mls/hr IV Q12H [facility] Stop: 04/05/23 08:59 Last Infusion: 03/06/23 08:42 Dose: 0 mls/hr Documented By: Admin: 03/06/23 08:27 Dose: 440 mls/hr Documented By: CYNDI Phenobarbital Sodium 200 mg/ (Syringe) 1.5385 mls @ 0.462 mls/min IV Q12H [facility] Stop: 04/05/23 08:59 Last Admin: 03/06/23 09:13 Dose: 0.462 mls/min Documented By: HOWARD Discontinued Medications Sodium Chloride (Nss 1000ml) 1,000 mls @ 999 mls/hr IV .Q1H1M [facility] Stop: 03/05/23 20:55 Last Infusion: 03/05/23 21:03 Dose: 0 mls/hr Documented By: Admin: 03/05/23 20:00 Dose: 999 mls/hr Documented By: BRANDAN Levetiracetam 2,000 mg/ Sodium (Chloride) 270 mls @ 999 mls/hr IV NOW STA Stop: 03/05/23 20:11 Last Infusion: 03/05/23 21:03 Dose: 0 mls/hr Documented By: Admin: 03/05/23 20:48 Dose: 999 mls/hr Documented By: BRANDAN Phenobarbital Sodium 1,000 mg/ (Sodium Chloride) 57.6923 mls @ 203.62 mls/hr IV NOW STA Stop: 03/05/23 19:56 Last Infusion: 03/05/23 21:23 Dose: 0 mls/hr Documented By: Admin: 03/05/23 21:08 Dose: 203.6 mls/hr Documented By: BRANDAN Sodium Chloride (Nss 1000ml) 1,000 mls @ 999 mls/hr IV .Q1H1M [facility] Stop: 03/05/23 22:18 Last Infusion: 03/05/23 22:18 Dose: 0 mls/hr Documented By: Admin: 03/05/23 21:23 Dose: 999 mls/hr Documented By: BRANDAN Sodium Chloride (Nss 1000ml) 500 mls @ 999 mls/hr IV .Q31M [facility] Stop: 03/06/23 11:06 Last Admin: 03/06/23 10:52 Dose: 999 mls/hr Documented By: CYNDI Sodium Chloride (Nss 1000ml) 1,000 mls @ 100 mls/hr IV .Q10H [facility] Stop: 04/05/23 10:44 Last Admin: 03/06/23 11:01 Dose: Not Given Documented By: CYNDI Description This is a 21 electrode EEG with a single channel dedicated to limited EKG. The electrodes were placed in accordance with the International 10-20 system. There is a symmetrically distributed posterior dominant rhythm of 10 Hz. There is a normal anterior to posterior organization. Photic stimulation is unremarkable. Hyperventilation is not performed. There is a symmetric frontal beta rhythm. There is an intermittent left frontal sharp and slow-wave focus. There is no evidence of seizure activity. Interpretation Abnormal awake/drowsy EEG with evidence of a left frontal sharp and slow-wave focus. Likely perirectal finding and consistent with patient's history of re cent seizures and seizure disorder. No evidence of ongoing seizure activity. [facility] EEG Procedure Codes Indication for Procedure (1) Seizure: Neurology Neurology: 77907 EEG include record awake & drowsy
--- NOTE | 2023-03-06 13:01 | Neurology Consultation ---
Date of Consultation March 06, 2023 Assessment & Plan (1) Seizure: (2) Seizure disorder: Plan 22-year-old male from [facility] with a history of epilepsy with seizures beginning in 2018. He was initially treated with phenobarbital and continues with this medication although has had some noncompliance previously. He moved to [facility] about 6 years ago and has been to the [facility] emergency department on several occasions for breakthrough seizures. He was prescribed K eppra after an evaluation in our emergency department in June 2021 but has apparently not been taking this medication. He presented again to the emergency department yesterday after another breakthrough seizure. A phenobarbital level yesterday was therapeutic and appropriate. There is mention of intermittent alcohol consumption which could be a factor in his breakthrough seizures. However, phenobarbital monotherapy does not appear to be adequate for seizure control in this patient. I agree with restarting Keppra. He has been given a 2 g loading dose of levetiracetam and is currently receiving a maintenance dose of 1000 mg IV every 12 hours. His phenobarbital has been continued at 2 g IV every 12 hours. These medications should be converted to p.o. at the same dose. Additional counseling will be needed regarding the importance of medication compliance. Additional counseling will be needed regarding avoidance of alcohol consumption. This patient does not drive. He would not be able to pursue obtaining a [employer] driver's license unless if he is able to demonstrate seizure freedom for 6 months, with medication compliance. If he does well with the combination of phenobarbital and Keppra over the next few months, we may consider tapering off of phenobarbital, and continuing with Keppra monotherapy. Patient will need additional outpatient follow-up. May follow-up with myself or one of our advanced practice clinicians in the next 2 to 3 weeks. History of Present Illness Reason for Consultation: Seizure disorder Requesting Physician: Dr. Knox Attending Physician: Trudi Fraser MD History of Present Illness The patient is a 22-year-old male from [facility] with a history of epilepsy. His brother is at bedside and corroborates his history. The patient speaks some Mauritian although his brother assists with interpretation at times. The patient began experiencing seizures at age 17, while living in [facility]. He was prescribed phenobarbital but takes this medication inconsistently. He moved to [facility] about 6 years ago and has been to the [facility] emergency department multiple times since June 2021 for seizures, after which she was started on Keppra for seizures although it looks like he has not been taking this medication. I see that a Keppra level from February 07, 2023 was less than 2.0 or unmeasurable. It looks like he usually takes his phenobarbital, however as he has had multiple therapeutic levels, with the exception of a subtherapeutic level from February 07, 2023 as well. The patient's brother has witnessed many of his seizures. The patient will sometimes indicate that he does not feel right, followed by generalized shaking and collapse. He presented to the emergency department last night after a seizure that occurred while at work. He works at a local restaurant. During his assessment in the emergency department he was lethargic and postictal. He did not have any witnessed seizure activity in the emergency department. He was loaded with IV Keppra and phenobarbital. He has been afebrile. Routine labs are unremarkable. A urine toxicology screen was positive for barbiturates and benzodiazepines. A CT of the head was negative for hemorrhage or acute process. I independently reviewed his brain MRI, seizure protocol, completed this morning. No acute process. No seizure focus identified. An EEG completed this morning revealed a left frontal sharp and slow-wave focus, no evidence of ongoing seizure activity. Currently, the patient is awake and alert. He denies fever, chills, headache, neck stiffness, vision loss, weakness, or sensory loss. Allergies Allergy/AdvReac Type Severity Reaction Status Date / Time No Known Allergies Allergy Unverified 07/04/21 20:12 Home Medications Medication Instructions Recorded Confirmed Type phenobarbital 100 mg tablet 200 mg PO BID 07/04/21 02/07/23 History Patient History Medical History No pertinent family history Seizure Surgical History No pertinent past surgical history Social History Smoking Status: Never smoker Hx Alcohol Use: Yes Preferred Language: Surinamese Communication Ability Comment: unknown Investigator Internal Affairs Required: Yes Current Living Situation Comment: Lives with brother, family situation unknown Feels Safe at Home: Yes Review of Systems Constitutional: no fever and no chills Eyes: no blind spots and no diplopia Ear, Nose, Mouth, Throat: no hearing loss Respiratory: no cough and no dyspnea Cardiovascular: no chest pain and no palpitations Gastrointestinal: no nausea and no vomiting Genitourinary: no urinary incontinence Musculoskeletal: no neck pain and no myalgia Integumentary: no rash and no lesions Neurologic: no localized weakness, no loss of sensation, no headache(s) and no confusion Psychiatric: no depression and no anxiety Hematologic / Lymphatic: no easy bleeding and no easy bruising Exam (Neuro) Constitutional: well developed and well nourished; no acute distress Eyes: normal visual howard by confrontation, PERRL and EOM intact bilaterally; no papilledema Cardiovascular: Vessels: no carotid bruit Neurologic: Oriented to:: Person, Place and Time Memory: Short Term Intact and Remote Intact Attention: Span Intact and Concentration Intact Speech Fluency: negative Dysarthria or Dysfluency Fund of Knowledge: Current Events, Past History and Vocabulary Cranial Nerves: Normal II, III, IV, , V, VII, VIII, IX, X, XI and XII Motor Strength: Normal Lower Extremities and Normal Upper Extremities Muscle Bulk/Involuntary Movements: No Involuntary Movements; negative Muscle Atrophy Sensation: Light Touch Intact, Pain/Temperature Intact, Vibration Intact and Proprioception Intact Coordination: Normal; negative Finger-Nose Abnormal or Heel-Xavier Abnormal Deep Tendon Reflexes: Rt Triceps: 2+, Lt Triceps: 2+, Rt Biceps: 2+, Lt Biceps: 2+, Rt Brachioradialis: 2+, Lt Brachioradialis: 2+, Rt Patellar: 2+, Lt Patellar: 2+, Rt Ankle: 2+ and Lt Ankle: 2+ Details: Gait not tested, seizure precautions in place. Results & Data Vital Signs (Past 12 Hours) Vital Signs Temp Pulse Pulse Resp BP BP Pulse Ox 03/06/23 10:56 55 L 14 120/71 98 03/06/23 09:13 48 L 13 95/68 L 03/06/23 07:55 44 L 03/06/23 07:41 36.4 C L 64 19 108/63 99 03/06/23 07:17 03/06/23 01:00 03/06/23 02:57 36.5 C 54 L 13 106/70 96 03/06/23 02:45 92/62 L 03/06/23 02:45 59 L 9 L 96 03/06/23 02:32 106/70 03/06/23 02:32 55 L 13 96 03/06/23 02:30 55 L 14 96 03/06/23 02:00 55 L 13 94 03/06/23 01:30 56 L 14 94 03/06/23 01:00 49 L 11 L 100 03/06/23 00:48 03/06/23 00:45 36.5 C 45 L 8 L 110/65 97 03/06/23 00:50 45 L 9 L 98 O2 Del Method O2 Del Method 03/06/23 10:56 Room Air 03/06/23 09:13 03/06/23 07:55 03/06/23 07:41 Room Air 03/06/23 07:17 Room Air 03/06/23 01:00 Room Air 03/06/23 02:57 Room Air 03/06/23 02:45 03/06/23 02:45 03/06/23 02:32 03/06/23 02:32 03/06/23 02:30 03/06/23 02:00 03/06/23 01:30 03/06/23 01:00 03/06/23 00:48 Room Air 03/06/23 00:45 Room Air 03/06/23 00:50 Room Air Laboratory Results WBC 8.70, hemoglobin 14.5, hematocrit 42.5, platelet count 221, sodium 140, potassium 3.8, BUN 9, creatinine 0.67, glucose 91, calcium 8.2, magnesium 1.9, AST 17, ALT 18, phenobarbital level yesterday was 24.3. Coding Level of Care Code 20719 INT INP/OBS CARE 75MIN Diagnoses Seizure R56.9 Seizure disorder G40.909
[2023-03-06] MEDS ORDERED: LORazepam 2 MG/1 ML VIAL IV PRN (21:07)
[2023-03-07] MEDS: NSS + 20MEQ KCL 20 MEQ/1,000 ML BAG IV SCH ×2 (05:47→12:47)
[2023-03-07 06:14] LABS: Basophils # (auto) 0.08 K/uL (0-0.2); Basophils % (auto) 0.7 %; Eosinophils # (auto) 0.63 K/uL (0-0.50); Eosinophils % (auto) 5.7 %; Hematocrit (blood only) 43.6 % (42.0-52.0); Hemoglobin 15.3 g/dl (14.0-18.0); Immature Granulocytes # (auto) 0.03 K/uL (0.01-0.20); Immature Granulocytes % (auto) 0.3 %; Lymphocytes # (auto) 1.85 K/uL (1.2-3.4); Lymphocytes % (auto) 16.7 %; Mean Corpuscular Hemoglobin 28.4 pg (25.0-34.0); Mean Corpuscular Hgb Conc 35.1 g/dL (32.0-36.0); Mean Corpuscular Volume 80.9 fL (80.0-100.0); Mean Platelet Volume 10.3 fL (9.4-12.4); Monocytes # (auto) 0.65 K/uL (0.11-0.59); Monocytes % (auto) 5.9 %; Neutrophils # (auto) 7.81 K/uL (1.40-6.50); Neutrophils % (auto) 70.7 %; Platelet Count 232 K/uL (130-400); RDW Coefficient of Variation 14.6 % (11.5-14.5); Red Blood Count 5.39 M/uL (4.70-6.10); White Blood Count 11.05 K/ul (4.8-10.8)
[2023-03-07 06:31] LABS: Alanine Aminotransferase 16 U/L (7-52); Albumin Globulin Ratio 1.4 (0.9-2); Albumin Level 3.8 gm/dl (3.4-5.0); Alkaline Phosphatase 70 U/L (34-104); Anion Gap 6 (3-11); Aspartate Aminotransferase 15 U/L (13-39); BUN Creatinine Ratio 10.3 (10-20); Bilirubin,Total 0.4 mg/dl (0.2-1.0); Blood Urea Nitrogen 7 mg/dl (6-23); Calcium 8.9 mg/dl (8.6-10.3); Carbon Dioxide 23 mmol/L (21-32); Chloride 108 mmol/L (98-107); Creatinine Clr Calc Pharmacy 174.4 ml/min; Est GFR (African American) > 150.0 ml/min; Est GFR (Non-African American) 134.6 ml/min; Globulin 2.8 gm/dl (2.5-4.0); Glucose 79 mg/dl (70-99(Fasting)); Magnesium 1.7 mg/dl (1.7-2.4); Potassium 3.8 mmol/L (3.5-5.1); Sodium 137 mmol/L (136-145); Total Protein 6.6 gm/dl (6.0-8.3)
--- NOTE | 2023-03-07 08:22 | Electrocardiogram Report ---
Test Reason : Blood Pressure : / mmHG Vent. Rate : 092 BPM Atrial Rate : 092 BPM P-R Int : 160 ms QRS Dur : 084 ms QT Int : 332 ms P-R-T Axes : 053 077 027 degrees QTc Int : 410 ms Normal sinus rhythm Possible Left atrial enlargement Borderline ECG When compared with ECG of 07-FEB-2023 13:02, No significant change was found Confirmed by Asif Miner ([id number]) on 03/07/2023 8:22:49 AM Referred By: REFERRED SELF Confirmed By:Asif Miner
--- NOTE | 2023-03-07 08:41 | Electrocardiogram Report ---
Test Reason : Blood Pressure : / mmHG Vent. Rate : 043 BPM Atrial Rate : 043 BPM P-R Int : 170 ms QRS Dur : 094 ms QT Int : 404 ms P-R-T Axes : 014 035 010 degrees QTc Int : 341 ms Marked sinus bradycardia with sinus arrhythmia ST elevation, consider early repolarization, pericarditis, or injury Abnormal ECG When compared with ECG of 05-MAR-2023 19:45, (unconfirmed) Vent. rate has decreased BY [address] more elevated in Anterior leads Confirmed by Asif Miner ([id number]) on 03/07/2023 8:41:11 AM Referred By: REFERRED SELF Confirmed By:Asif Miner
--- NOTE | 2023-03-07 09:37 | XCELERA ---
[id number]
[2023-03-07] MEDS: PHENOBARBITAL SODIUM IV SCH (10:16)
[2023-03-07] MEDS: levETIRAcetam 1,000 MG in 0.9 % SODIUM CHLORIDE 100 ML IV SCH (10:16)
--- NOTE | 2023-03-07 12:18 | Discharge Summary ---
Date of Service March 07, 2023 Admission HPI Per Admitting Provider The patient is a 22-year-old male with a past medical history including seizure disorder, who presents to the emergency department after having had 2 seizures prior to hospital arrival. He had been given Versed 4 mg IV by EMS in route, and received from the ED Keppra 2000 mg IV and phenobarbital 1000 mg IV. His brother reports that the patient had had seizures as a child, and then had seizures again for the first time several months ago when he was restarted on medications at that time. His brother reports that he drinks alcohol about every 3 days on average, does not drink to excess, and reportedly had alcohol drink yesterday. The patient himself his rousable to sternal rub, but otherwise is sedated and unresponsive. Admission Exam Per Admitting Provider The patient is sedated, postictal, well developed and well nourished, normocephalic and atraumatic, lying in bed and in no acute distress. HEENT--PERRL, EOMI, mucous membranes and oropharynx dry. Neck--supple. No JVD. No bruits. Thyroid normal, trachea midline, no adenopathy. Heart--normal S1 and S2. No murmurs, rubs or gallops. Lungs--clear bilaterally, no respiratory distress, no accessory muscle use. Abdomen--normal bowel sounds and soft. Nontender. Nondistended, no hernias or masses, no organomegaly. Extremities--no cyanosis or clubbing. No edema. There are good distal pulses b/l. Dermatologic--normal skin turgor, normal color, no abnormal lymph nodes, no rash. Neurologic--limited exam due to sedation Rheumatologic--limited exam due to sedation Psychiatric--unresponsive due to sedation, does wake up to sternal rub Principal Diagnosis Seizure Discharge Exam Constitutional well developed and well nourished; no acute distress Eyes + anicteric sclerae and reactive pupils ENMT External ears and nose normal. Moist mucous membranes. Respiratory normal respiratory effort, lungs clear to auscultation Cardiovascular Rate/Rhythm: regular rate and regular rhythm Heart Sounds: no murmur Skin no rashes, warm and dry Neurologic CN's II-XI intact bilaterally and moves all extremities; no focal motor deficits Cranial Nerves: EOM intact bilaterally, normal facial strength, tongue midline and able to elevate shoulders bilaterally Psychiatric Motor Behavior: no abnormal motor movements Discharge Data Allergies Allergy/AdvReac Type Severity Reaction Status Date / Time No Known Allergies Allergy Unverified 07/04/21 20:12 Consultations 03/05/23 22:16 ED Decision to Admit Stat 03/06/23 01:23 Consult Neurology Routine 03/07/23 07:19 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 Comparison: None available at the time of this dictation. FINDINGS: Exam is mildly limited by patient motion. No abnormal restricted diffusion is identified. The white matter is unremarkable. The ventricular system is normal in appearance.No mass or abnormal enhancement is seen. There is no mass effect or midline shift. There is no evidence of acute intraparenchymal hemorrhage. No extra axial fluid collections are seen. The corpus callosum, pituitary gland, and cerebellar tonsils appear grossly unremarkable. High-resolution images of the temporal lobes do not demonstrate any signal abnormality. Flow voids of the major intracranial arterial vessels are identified. The imaged portions of the paranasal sinuses, mastoid air cells, and orbits are unremarkable. IMPRESSION: No acute abnormality. In particular, no edema in the temporal lobes bilaterally in this postictal patient. ACT 112: Negative or not required by law. Electronically signed by: Darvin Oakley M.D. 03/06/2023 10:[address] 03/06/23 03:09 Exam(s): CT HEAD Without Contrast EXAM: CT Head Without Intravenous Contrast CLINICAL HISTORY: seizure, altered mentation. TECHNIQUE: Axial computed tomography images of the head/brain without intravenous contrast. CTDI is 37.69 mGy and DLP is 624.41 mGy-cm. Automated exposure control was utilized for the study. A dose lowering technique was utilized adhering to the principles of ALARA. COMPARISON: 02/07/2023 FINDINGS: Brain: Unremarkable. No hemorrhage. No significant white matter disease. No edema. Ventricles: Unremarkable. No ventriculomegaly. Bones/joints: Unremarkable. No acute fracture. Soft tissues: Unremarkable. Sinuses: Unremarkable as visualized. No acute sinusitis. Mastoid air cells: Unremarkable as visualized. No mastoid effusion. IMPRESSION: No acute intracranial process or significant alteration from the previous examination. Electronically signed by: Cj Cota MD 03/06/23 04:42 AM Chest X-Ray 03/06/23 08:24 XR chest 1V portable CLINICAL HISTORY: screening for implantables prior to MRI COMPARISON STUDY: Chest radiograph May 24, 2022. FINDINGS: Lung volumes are normal. Lungs are clear. There is no pneumothorax or pleural effusion. Mild enlargement of the cardiac silhouette is again noted. Mediastinal contours are normal. There is no evidence for pulmonary edema. No unexpected radiopaque foreign bodies. IMPRESSION: No contraindication to MRI within the chest. ACT 112: Negative or not required by law. Electronically signed by: Modesto Rich M.D. 03/06/2023 9:46 AM KUB X-Ray 03/06/23 08:24 KUB CLINICAL HISTORY: screening for implantables prior to MRI COMPARISON STUDY: None. FINDINGS: The bowel gas pattern is normal. No unexpected radiopaque foreign bodies are identified. Amount of stool is within normal limits. IMPRESSION: No contraindication to MRI within the abdomen or pelvis. ACT 112: Negative or not required by law. Electronically signed by: Modesto Rich M.D. 03/06/2023 9:47 AM Orbit X-Ray 03/06/23 08:24 ORBIT RADIOGRAPHS 3 VIEWS HISTORY: pre-MRI screening. COMPARISON: Head CT March 06, 2023 at 3:23 AM. FINDINGS: There are no radiopaque foreign bodies identified within the orbits. IMPRESSION: No radiopaque foreign bodies identified within the orbits. ACT 112: Negative or not required by law. Electronically signed by: Modesto Rich M.D. 03/06/2023 9:51 AM Hospital Course (1) Post-ictal state: (2) Seizure: Jadon White is a 22 year-old male who presented to the ED after experiencing a seizure at work. He has a past medical history of seizure disorder, diagnosed at age 17. Seizure disorder/Postictal State Patient had two seizures prior to hospital arrival on 03/05, received Ativan/Versed in ambulance and Keppra/Phenobarbital in the ED. Per chart review, the patient has had multiple ED trips in the past two years due to seizures. He had previously been prescribed his anti-epileptic medications by a physician in [place] in 2021 however this provider is no longer in the area. Per PDMP review, phenobarbital was most recently filled in 07/2022 (90 day supply) however patient states he had remaining medication. Phenobarbital level 24.3 on admission, within therapeutic range. Neurology consulted: continue current dosage of phenobarbital/Keppra, consider tapering off phenobarbital in the future. Advised restriction of alcohol and strict adherence to medications. Follow up with outpatient neurology in 2-3 weeks. Current dosing of medications is Keppra 1000 mg p.o. twice daily and phenobarbital 200 mg p.o. twice daily Studies: * CT head: no acute abnormalities * MR Brain: no acute abnormalities * EEG: left frontal sharp and slow-wave focus, no evidence of ongoing seizure activity Hypotension, Bradycardia BP has been soft at 90s-100s/50s and HR mid 40s-50s. Ordered Lyme studies- negative. Ordered echocardiogram, no acute abnormalities. Barriers to Care Patient states he does not have insurance and currently does not have a primary care doctor. Provided patient with information for [facility] to pursue primary care provider, also provided patient with form to apply for [employer] Financial Assistance Application as he does not have health insurance and will require outpatient follow up with Neurology. 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 Total Time Total Time Spent Total Time Spent (In Minutes): . Discharge Plan Discharge Items Patient Disposition: Home - Self-Care Reason For Visit: SEIZURE ACTIVITY Discharge Diagnosis: Seizure Activity: Per Instructions section Non-emergency contact: Primary Care Provider and Neurologist Call non-emergency contact if: you have any medication questions and your symptoms worsen Follow-up/Referrals: PCP,NO [Primary Care Provider] - (patient will establish relationship with doctors for ongoing care.) Diet: Regular Addtl Attending Provider Instructions: Sachin, you were admitted to the hospital for seizures. You had imaging of your brain completed (CT scan, MRI) and were treated with seizure medications (Keppra, Phenobarbital). As we discussed, it is very important that you take all of your medications as prescribed every day * It is very important that you establish care with a new primary doctor in [place]. * [facility] is a free clinic in [place], you can call [phone] or visit this website: [email or web address] to become a patient. * You will need to see Neurology in 2-3 weeks for a follow-up appointment. The office will call you to schedule this appointment. * Refills of your medications were sent to [facility] on [address] * We have provided a form for financial assistance application for [facility]. Please complete this form. Medications: Below are your seizure medications, please take these medications every day. Phenobarbitol: Take two tablets (100mg each) twice daily. Keppra: Take one tablet (1000mg) twice daily. Thank you for allowing us to participate in your care. If you have any questions or need assistance with your appointments, please call Tami Maher at [phone]. Sachin usted fue admitido al hospital debido a convulsiones. Usted tuvo imagenes de raudel completados (CT scan, MRI) y fue tratado con medicamentos para controlar jareth convulsiones (Keppra, Phenobarbital). Kelin discutido, es muy importante que tome todos jareth medicamentos alexx fueron prescritos/recetados todos los galvin. * Es muy importante que establezca cuidado con un nuevo medico primario en [place] * [facility] es bao clinica gratis en [place], y puede llamar al [phone] o acceder al enlace previsto para volverse un paciente de esta clinica ([email or web address].[email or web address]/forms/d/[email or web address]) * Necesitara kaila a un neurologo en 2-3 semanas para bao bharti de seguimiento. La oficina lo llamara para calendarizar esta bharti. * Se enviaron las recetas para rellenar jareth medicamentos al [facility] en [facility] * Hemos proporcionado un formulario de solicitud de asistencia financiera para [facility]. Por favor complete anderson formulario. Medicamentos: Abajo encontrara jareth medicamentos para controlar jareth convulsiones, por favor tome estos medicamentos todos los galvin alexx indicado. * Phenobarbitol: [place] dos tabletas (100mg cada bao) dos veces al carol. * Keppra: [place] bao tableta (1000mg) dos veces al carol. Oriana por permitirnos gloria parte en spaulding cuidado. Pending Studies at Discharge: No Stand-Alone Forms: My [facility], Smoking Cessation Medications and DC Order Prescriptions: New levetiracetam [Keppra] 1,000 mg tablet 1,000 mg PO BID 30 Days Qty: 60 1RF phenobarbital 100 mg tablet 200 mg PO BID Qty: 60 0RF Discontinued phenobarbital 100 mg Tablet 200 mg PO BID Rx Instructions: not filled recently per surescripts Discharge Orders: Discharge Order (Routine); Ordered 03/07/23 Ordered By: Karen Nair/Other Patient Handouts: Levetiracetam Oral Tablet, Phenobarbital Oral Tablet, Safety During a Seizure, First Aid: Seizures Admission Data Admit Date/Time: 03/05/23 23:06 Attending Provider: Trudi Fraser Admit Provider: Chuck Nelson Primary Care Provider: PCP,NO Other Providers: Chuck Nelson ; Donald Gil Other Interventions: Discharge Summary Assessment (RN) Last Done: 03/07/23 17:09 Supervising Physician Co-Signing Physician Notes Resident Physician Supervision Note: I independently interviewed and examined the patient and verified the chand history and physical, reviewed labs and image studies and agree with resident findings and care plan.
[2023-03-07 20:18] LABS: 7-Aminoclonaz, Confirm NEGATIVE ng/mL (<25); Amobarbital, Urine Conf NEGATIVE ng/mL (<100); Butalbital, Urine NEGATIVE ng/mL (<100); Hydro-Alp Ur, GC/MS NEGATIVE ng/mL (<25); Hydroxyethylflurazepam, Conf NEGATIVE ng/mL (<50); Hydroxymidazolam Ur, GC/MS >2000 ng/mL (<50); Hydroxytriazolam NEGATIVE ng/mL (<50); Lorazepam, Ur GC/MS 198 ng/mL (<50); Nordiazepam, Confirm NEGATIVE ng/mL (<50); Oxazepam Ur, GC/MS NEGATIVE ng/mL (<50); Pentobarbital, Urine Conf NEGATIVE ng/mL (<100); Phenobarbital, Urine >5000 ng/mL (<100); Secobarbital, Urine Conf NEGATIVE ng/mL (<100); Temazepam, Confirm NEGATIVE ng/mL (<50)
== END 2023-03-07 18:08 | disposition home or self-care (01) | DRG 101 ==
LOC: ED 19:39 → SUATTDRO 23:06 → 2E 23:06